=== PATIENT | male | born 1985 | race American Indian/Alaskan Native ===

== ENCOUNTER 2017-12-13 06:19 | Emergency (ER) | payer OTHER ==
--- NOTE | 2017-12-13 08:05 | Emergency Department Report ---
HPI - General Chief Complaint: Upper Respiratory Infection Time Seen by Provider: 12/13/17 07:07 - HPI HPI: Patient reports upper respiratory symptoms to include fever, chills, shortness of breath, cough for 3 days. He's been exposed to influenza virus from his family member. He said his brother also was just trace in the hospital for bilateral pneumonia. Generalized achy and 10 out of 10, he reports some sore throat. Reports headache. Denies any back pain or abdominal pain. Denies any urinary burning frequency or urgency. Denies any nausea or vomiting. He is able to tolerate oral liquids and was noted to be drinking in Gatorade. Over- the-counter medication without any relief. ED Past Medical Hx - Past Medical History Previous Medical History?: No - Surgical History Past Surgical History?: No - Social History Smoking Status: Never Smoker Substance Use Type: None - Medications Home Medications: Home Medications Medication Instructions Recorded Confirmed Last Taken Type Cetirizine HCl [ZyrTEC] 10 mg PO QDAY 10 Days #10 capsule 12/13/17 Unknown Rx Ibuprofen [Motrin] 600 mg PO Q6H PRN #12 tablet 12/13/17 Unknown Rx Oseltamivir [Tamiflu] 75 mg PO BID 5 Days #10 cap 12/13/17 Unknown Rx guaiFENesin/CODEINE [Robitussin AC] 5 ml PO Q12H PRN #50 oral.liqd 12/13/17 Unknown Rx ED Review of Systems ROS: Stated complaint: SWEATS, COLD SX Other details as noted in HPI Comment: All other systems reviewed and negative Constitutional: chills, fever, weakness Eyes: eye discharge ENT: throat pain, congestion. denies: ear pain, dental pain, hearing loss Respiratory: cough, shortness of breath, SOB with exertion. denies: orthopnea, SOB at rest, stridor, wheezing Cardiovascular: denies: chest pain, palpitations, dyspnea on exertion, orthopnea , edema, syncope, paroxysmal nocturnal dyspnea Gastrointestinal: denies: abdominal pain, nausea, vomiting, diarrhea, constipation, hematemesis, melena, hematochezia Genitourinary: denies: urgency, dysuria, frequency, hematuria, discharge Musculoskeletal: myalgia. denies: back pain, joint swelling, arthralgia Skin: denies: rash Neurological: headache, weakness. denies: numbness, paresthesias, confusion, abnormal gait Physical Exam - Physical Exam Vital Signs: Vital Signs 12/13/17 06:40 Temperature 100.1 F H Pulse Rate 101 H Blood Pressure 126/61 O2 Sat by Pulse 99 Oximetry Vital Signs 12/13/17 12/13/17 12/13/17 06:40 08:20 08:52 Temperature 100.1 F H 99.4 F Pulse Rate 101 H 97 H Pulse Rate [ 89 Anterior Bilateral Throughout] Respiratory 16 Rate Respiratory 18 Rate [Anterior Bilateral Throughout] Blood Pressure 126/61 Blood Pressure 125/74 [Left] O2 Sat by Pulse 99 97 Oximetry 12/13/17 09:05 Temperature Pulse Rate Pulse Rate [ 85 Anterior Bilateral Throughout] Respiratory Rate Respiratory 20 Rate [Anterior Bilateral Throughout] Blood Pressure Blood Pressure [Left] O2 Sat by Pulse Oximetry General: This is a 31-year-old male that looks sick but nontoxic in appearance. ED Course Vital Signs 12/13/17 06:40 Temperature 100.1 F H Pulse Rate 101 H Blood Pressure 126/61 O2 Sat by Pulse 99 Oximetry Vital Signs 12/13/17 12/13/17 12/13/17 06:40 08:20 08:52 Temperature 100.1 F H 99.4 F Pulse Rate 101 H 97 H Pulse Rate [ 89 Anterior Bilateral Throughout] Respiratory 16 Rate Respiratory 18 Rate [Anterior Bilateral Throughout] Blood Pressure 126/61 Blood Pressure 125/74 [Left] O2 Sat by Pulse 99 97 Oximetry 12/13/17 09:05 Temperature Pulse Rate Pulse Rate [ 85 Anterior Bilateral Throughout] Respiratory Rate Respiratory 20 Rate [Anterior Bilateral Throughout] Blood Pressure Blood Pressure [Left] O2 Sat by Pulse Oximetry - Reevaluation(s) Reevaluation #1: 12/13/17 09:58 Patient given Motrin 800 mg by mouth, DuoNeb 1 treatment for scant upper lung field wheezing with shortness of breath. Evaluated after treatment and he said he felt much better. He was orally hydrated in the emergency room and tolerated 3 cups of water without any nausea or vomiting. ED Medical Decision Making - Lab Data Negative influenza A and B - Radiology Data Radiology results: report reviewed Chest x-ray reveals no acute cardiopulmonary processes Critical care attestation.: If time is entered above; I have spent that time in minutes in the direct care of this critically ill patient, excluding procedure time. ED Disposition Clinical Impression: Exposure to the flu, Acute viral syndrome, Upper respiratory infection with cough and congestion, Fever in adult Disposition: DC-01 TO HOME OR SELFCARE Is pt being admited?: No Does the pt Need Aspirin: No Condition: Stable Instructions: Viral Syndrome (ED), Upper Respiratory Infection (ED), Fever in Adults (ED), Acute Cough (ED) Additional Instructions: Please increase her fluid intake to 2-3 L of liquids including orange juice, water, cranberry juice and Gatorade. rest for 2 days Take medication as prescribed Follow up with your primary care physician in 4 days and if he do not have when he can follow-up at [facility]. if your condition worsens .please return to the emergency room Please do not drive or operate heavy machinery while taking and cough medicine that this medication causes drowsiness Prescriptions: Cetirizine HCl [ZyrTEC] 10 mg PO QDAY 10 Days #10 capsule guaiFENesin/CODEINE [Robitussin AC] 5 ml PO Q12H PRN #50 oral.liqd PRN Reason: Cough Ibuprofen [Motrin] 600 mg PO Q6H PRN #12 tablet PRN Reason: Pain Oseltamivir [Tamiflu] 75 mg PO BID 5 Days #10 cap Referrals: [facility] [Outside] - 12/17/17 Forms: Accompanied Note, Work/School Release Form(ED)
[2017-12-13] MEDS ORDERED: MOTRIN PO ONE (08:09)
[2017-12-13] MEDS ORDERED: DUONEB *Not for PRN Use IH ONE (08:09)
[2017-12-13 08:22] VITALS: BP 125/74
--- NOTE | 2017-12-13 08:41 | XRay Report ---
ROUTINE CHEST, TWO VIEWS: Cough, fever PA and lateral views demonstrate the heart and mediastinal contour to be of normal size and shape. The lungs are clear and fully expanded and the soft tissues and bony structures are normal. IMPRESSION: Normal study.
== END 2017-12-13 10:14 | disposition home or self-care (01) ==
LOC: ED 06:19
DX: J06.9 Acute upper respiratory infection, unspecified (principal); B34.9 Viral infection, unspecified; Z20.828 Contact with and (suspected) exposure to other viral communicable diseases
CPT/HCPCS: 71046; 87400; 94640

== ENCOUNTER 2021-04-28 09:09 | Observation (INO) | payer SELFPAY ==
[2021-04-28] MEDS ORDERED: MORPHINE 4 MG/1 ML INJ IV ONE (10:19)
[2021-04-28] MEDS ORDERED: SODIUM CHLORIDE 0.9% 1000 ML 1,000 ML IV ONE (10:19)
[2021-04-28] MEDS ORDERED: ONDANSETRON 4 MG/2 ML INJ IV ONE (10:19)
--- NOTE | 2021-04-28 10:20 | Emergency Department Report ---
ED Abdominal Pain HPI - General Chief Complaint: Abdominal Pain Stated Complaint: BOWEL DISCOMFORT Time Seen by Provider: 04/28/21 10:14 Source: patient Mode of arrival: Ambulatory Limitations: No Limitations - History of Present Illness Initial Comments: 35 year old male who reports no significant past medical history presents to the ER today with complaints of abdominal pain. Patient states that symptoms started yesterday. He reports diffuse abdominal pain which has been constant in nature. He reports multiple episodes of nausea and vomiting and he states that his emesis is mainly bilious. He states that he has also been constipated with his last bowel movement being 5 days ago. He states that he has not tried any zoce-amw-pvonval medications to help with his bowel movements. He denies any history of abdominal surgeries. He denies any ill contacts, recent bad food intake, recent antibiotic use or recent travel out of the country. He states that he drinks occasionally. He denies any tobacco abuse or illicit drug use. MD Complaint: abdominal pain -: days(s) (1) Location: diffuse Severity scale (0 -10): 10 - Related Data Previous Rx's Medication Instructions Recorded Last Taken Type Cetirizine HCl [ZyrTEC] 10 mg PO QDAY 10 Days #10 capsule 12/13/17 Unknown Rx Ibuprofen [Motrin] 600 mg PO Q6H PRN #12 tablet 12/13/17 Unknown Rx Oseltamivir [Tamiflu] 75 mg PO BID 5 Days #10 cap 12/13/17 Unknown Rx guaiFENesin/CODEINE [Robitussin AC] 5 ml PO Q12H PRN #50 oral.liqd 12/13/17 Unknown Rx Allergies Allergy/AdvReac Type Severity Reaction Status Date / Time No Known Allergies Allergy Unverified 12/13/17 08:08 ED Review of Systems ROS: Stated complaint: BOWEL DISCOMFORT Other details as noted in HPI Comment: All other systems reviewed and negative Constitutional: denies: chills, fever Eyes: denies: eye pain, eye discharge, vision change ENT: denies: ear pain, throat pain, dental pain, hearing loss, epistaxis, congestion Respiratory: denies: cough, shortness of breath, SOB with exertion, SOB at rest, wheezing Cardiovascular: denies: chest pain, palpitations, dyspnea on exertion, edema, syncope, paroxysmal nocturnal dyspnea Gastrointestinal: abdominal pain, nausea, vomiting, constipation Genitourinary: denies: urgency, dysuria, frequency, hematuria, discharge, testicular pain, testicular mass Musculoskeletal: denies: back pain, joint swelling, arthralgia Skin: denies: rash, lesions, change in color, change in hair/nails, pruritus Neurological: denies: headache, weakness, numbness, paresthesias, confusion, abnormal gait, vertigo Psychiatric: denies: anxiety, depression, auditory hallucinations, visual hallucinations, homicidal thoughts Hematological/Lymphatic: denies: easy bleeding, easy bruising, swollen glands ED Past Medical Hx - Past Medical History Previous Medical History?: No - Surgical History Past Surgical History?: No - Social History Smoking Status: Never Smoker Substance Use Type: None - Medications Home Medications: Home Medications Medication Instructions Recorded Confirmed Last Taken Type Cetirizine HCl [ZyrTEC] 10 mg PO QDAY 10 Days #10 capsule 12/13/17 Unknown Rx Ibuprofen [Motrin] 600 mg PO Q6H PRN #12 tablet 12/13/17 Unknown Rx Oseltamivir [Tamiflu] 75 mg PO BID 5 Days #10 cap 12/13/17 Unknown Rx guaiFENesin/CODEINE [Robitussin AC] 5 ml PO Q12H PRN #50 oral.liqd 12/13/17 Unknown Rx ED Physical Exam - General Limitations: No Limitations General appearance: alert, in distress, other (Pt actively vomiting in trash can when I walked in room ) - Head Head exam: Present: atraumatic, normocephalic, normal inspection - Eye Eye exam: Present: normal appearance, PERRL, EOMI Pupils: Present: normal accommodation - Neck Neck exam: Present: normal inspection, full ROM. Absent: meningismus - Respiratory Respiratory exam: Present: normal lung sounds bilaterally. Absent: respiratory distress, wheezes, rales, rhonchi - Cardiovascular Cardiovascular Exam: Present: regular rate, normal rhythm, normal heart sounds - GI/Abdominal GI/Abdominal exam: Present: soft, distended (Mild), tenderness (Diffuse). Absent: rebound, rigid - Neurological Exam Neurological exam: Present: alert, oriented X3, CN II-XII intact, normal gait - Psychiatric Psychiatric exam: Present: normal affect, normal mood - Skin Skin exam: Present: intact ED Course Vital Signs 04/28/21 04/28/21 04/28/21 09:12 11:00 11:58 Temperature 98.4 F Pulse Rate 72 Respiratory 18 16 13 Rate Blood Pressure Blood Pressure 142/87 [Right] O2 Sat by Pulse 100 Oximetry 04/28/21 04/28/21 04/28/21 12:06 13:31 13:37 Temperature 99.2 F Pulse Rate 73 80 Respiratory 13 16 17 Rate Blood Pressure 133/69 Blood Pressure 145/71 [Right] O2 Sat by Pulse 98 96 Oximetry ED Medical Decision Making - Lab Data Result diagrams: 04/28/21 10:34 04/28/21 10:34 - Radiology Data Radiology results: report reviewed Patient: JUSTIN CHILDERS MR#: [id number] : 1985 Acct:[id number] Age/Sex: 35 / M ADM Date: 04/28/21 Loc: ED Attending Dr: Ordering Physician: OLAMIDE PETERSEN Date of Service: 04/28/21 Procedure(s): CT abdomen pelvis w con Accession Number(s): [id number] cc: OLAMIDE PETERSEN CT abdomen pelvis w con INDICATION / CLINICAL INFORMATION: Vomit/abdominal/constipation 100ML OMNI 300. TECHNIQUE: Axial CT images were obtained through the abdomen and pelvis after IV contrast. All CT scans at this location are performed using CT dose reduction for ALARA by means of automated exposure control. COMPARISON: None available. FINDINGS: LOWER CHEST: No significant abnormality LIVER: No significant abnormality GALLBLADDER/BILIARY TREE: No significant abnormality PANCREAS: No significant abnormality SPLEEN: No significant abnormality ADRENALS: Low-density nodule within the left adrenal gland measures 2.6 cm. This is indeterminate. Right adrenal gland is unremarkable. KIDNEYS / URETER: No significant abnormality URINARY BLADDER: No significant abnormality REPRODUCTIVE ORGANS: No significant abnormality STOMACH / BOWEL: Stomach is unremarkable. Small bowel and colon demonstrate no evidence of mechanical obstruction or inflammation. 1.5 cm appendicolith is present at the base of the appendix. The appendix is dilated proximally, measuring 2.4 cm. There is wall thickening and mild perivesical fat stranding. The distal appendix is normal in caliber. No significant free fluid or organized collection. No free air. LYMPH NODES: Left inguinal lymphadenopathy, measuring up to 1.5 cm in short axis. No other adenopathy is seen. VASCULATURE: No significant abnormality. OTHER: No free air, free fluid, or focal fluid collection is identified. SKELETAL SYSTEM: No acute osseous findings. IMPRESSION: 1. Findings consistent with acute appendicitis with 1.5 cm appendicolith at the base of the appendix. No perforation or abscess. 2. Nonspecific left inguinal lymphadenopathy, may be reactive. Continued follow-up is recommended. 3. Left adrenal nodule may reflect an adrenal adenoma, though is indeterminate. Recommend further evaluation with nonemergent CT with adrenal mass protocol. Signer Name: Luis Monique MD Signed: 04/28/2021 1:03 PM Workstation Name: [email or web address] Transcribed By: JERRY Dictated By: LUIS MONIQUE MD Electronically Authenticated By: LUIS MONIQUE MD Signed Date/Time: 04/28/21 1303 DD/ 1258 - Medical Decision Making All labs reviewed -CBC shows very mild leukocytosis with a white count of 11.5, otherwise unremarkable. CMP unremarkable. Lipase normal. CT scan of abdomen pelvis with IV contrast shows -- 1. Findings consistent with acute appendicitis with 1.5 cm appendicolith at the base of the appendix. No perforation or abscess. 2. Nonspecific left inguinal ly mphadenopathy, may be reactive. Continued follow-up is recommended. 3. Left adrenal nodule may reflect an adrenal adenoma, though is indeterminate. Recommend further evaluation with nonemergent CT with adrenal mass protocol. Patient currently resting comfortably. He still has tenderness to his right lower quadrant with guarding. Repeat vital signs stable. Discussed lab and CT results with patient. He is aware that he will have to have surgery to remove his appendix. 1326: Consult placed for surgery 1405: Discussed case as well as imaging results with Dr. Almonte, recommend starting patient on Zosyn, and admitted to the hospitalist service and she will consult and come see patient in the ER. 1410: Discussed case and imaging results and recommendation per consultation with Dr Almonte with Dr Garrido (hospitalist). He has agreed to admit pt. Critical care attestation.: If time is entered above; I have spent that time in minutes in the direct care of this critically ill patient, excluding procedure time. ED Disposition Clinical Impression: Acute appendicitis Disposition: OP ADMIT IP TO THIS HOSP Is pt being admited?: Yes Does the pt Need Aspirin: No Condition: Stable Referrals: PRIMARY CARE, [Primary Care Provider] - 3-5 Days
[2021-04-28 11:11] LABS: Basophils # (Auto) 0.1 K/mm3 (0.0-0.1); Basophils % (Auto) 0.5 % (0.0-1.8); Hematocrit 45.4 % (35.5-45.6); Hemoglobin 15.2 gm/dl (11.8-15.2); Lymphocytes # (Auto) 0.9 K/mm3 (1.2-5.4); Lymphocytes % (Auto) 7.3 % (13.4-35.0); Mean Corpuscular HGB Conc 34 % (32-34); Mean Corpuscular Volume 81 fl (84-94); Monocytes # (Auto) 0.4 K/mm3 (0.0-0.8); Monocytes % (Auto) 3.2 % (0.0-7.3); Platelet Count 212 K/mm3 (140-440); Red Blood Count 5.61 M/mm3 (3.65-5.03); Red Cell Distribution Width 13.4 % (13.2-15.2)
[2021-04-28 11:34] LABS: Alanine Aminotransferase 38 units/L (7-56); Albumin 4.7 g/dL (3.9-5); BUN/Creatinine Ratio 14; Blood Urea Nitrogen 11 mg/dL (9-20); Calcium 11.6 mg/dL (8.4-10.2); Hemolysis Index 50
[2021-04-28 11:36] LABS: Bilirubin,Direct < 0.2 mg/dL (0-0.2)
[2021-04-28] MEDS ORDERED: KETOROLAC 30 MG/1 ML INJ IV ONE (11:46)
[2021-04-28] MEDS ORDERED: HYDROmorphone 1 MG/1 ML INJ IV ONE (11:46)
--- NOTE | 2021-04-28 13:08 | Cat Scan Report ---
CT abdomen pelvis w con INDICATION / CLINICAL INFORMATION: Vomit/abdominal/constipation 100ML OMNI 300. TECHNIQUE: Axial CT images were obtained through the abdomen and pelvis after IV contrast. All CT sc ans at this location are performed using CT dose reduction for ALARA by means of automated exposure c ontrol. COMPARISON: None available. FINDINGS: LOWER CHEST: No significant abnormality LIVER: No significant abnormality GALLBLADDER/BILIARY TREE: No significant abnormality PANCREAS: No significant abnormality SPLEEN: No significant abnormality ADRENALS: Low-density nodule within the left adrenal gland measures 2.6 cm. This is indeterminate. Ri ght adrenal gland is unremarkable. KIDNEYS / URETER: No significant abnormality URINARY BLADDER: No significant abnormality REPRODUCTIVE ORGANS: No significant abnormality STOMACH / BOWEL: Stomach is unremarkable. Small bowel and colon demonstrate no evidence of mechanical obstruction or inflammation. 1.5 cm appendicolith is present at the base of the appendix. The append ix is dilated proximally, measuring 2.4 cm. There is wall thickening and mild perivesical fat strandi ng. The distal appendix is normal in caliber. No significant free fluid or organized collection. No f ree air. LYMPH NODES: Left inguinal lymphadenopathy, measuring up to 1.5 cm in short axis. No other adenopathy is seen. VASCULATURE: No significant abnormality. OTHER: No free air, free fluid, or focal fluid collection is identified. SKELETAL SYSTEM: No acute osseous findings. IMPRESSION: 1. Findings consistent with acute appendicitis with 1.5 cm appendicolith at the base of the appendix. No perforation or abscess. 2. Nonspecific left inguinal lymphadenopathy, may be reactive. Continued follow-up is recommended. 3. Left adrenal nodule may reflect an adrenal adenoma, though is indeterminate. Recommend further magui luation with nonemergent CT with adrenal mass protocol. Signer Name: Saroj Monique MD Signed: 04/28/2021 1:03 PM Workstation Name: [email or web address]
[2021-04-28] MEDS ORDERED: PIPERACILLIN/TAZOBACTAM 3.375 3.375 GM/50 ML BAG IV ONE (14:15)
[2021-04-28] MEDS ORDERED: BUPIVACAINE/PF (0.5%) 5 MG/1 ML 30 ML VIAL INFILTRATI ONE ×2 (14:38→16:35)
[2021-04-28] MEDS ORDERED: LIDOCAINE (1%) 10 MG/1 ML VIAL 20 ML MDV ONE (14:38)
--- NOTE | 2021-04-28 14:45 | Anesthesia Consultation ---
<FREEMAN SAMUELS - Last Filed: 04/28/21 14:43> Anesthesia Consult and Med Hx Date of service: 04/28/21 - Airway Anesthetic Teeth Evaluation: Good ROM Head & Neck: Adequate Mental/Hyoid Distance: Adequate Mallampati Class: Class II Intubation Access Assessment: Probably Good - Pulmonary Exam CTA: Yes - Cardiac Exam Cardiac Exam: RRR - Pre-Operative Health Status ASA Pre-Surgery Classification: ASA1 Proposed Anesthetic Plan: General - Pulmonary Hx Smoking: No <BOONE PLAZA - Last Filed: 04/28/21 16:12> Anesthesia Consult and Med Hx - Pre-Operative Health Status ASA Pre-Surgery Classification: ASA1 Proposed Anesthetic Plan: General - Pulmonary Hx Smoking: No - Cardiovascular System Hx Hypertension: No - Central Nervous System CVA: No - Endocrine Hx Renal Disease: No Hx Liver Disease: No Hx Insulin Dependent Diabetes: No Hx Non-Insulin Dependent Diabetes: No Hx Thyroid Disease: No - Other Systems Hx Obesity: Yes (BMI 31) - Additional Comments Anesthesia Medical History Comments: Acute appendicitis scheduled for lap appendectomy. Plan GETA w/ stnd ASA monitors.
--- NOTE | 2021-04-28 14:46 | Anesthesia Day of Surgery ---
Anesthesia Day of Surgery - Day of Surgery Patient Examined: Yes Patient H&P Reviewed: Yes Patient is NPO: Yes Beta Blockers: No Cardiac Clearance: No Pulmonary Clearance: No (n/a) Osiel's Test: N/A
--- NOTE | 2021-04-28 14:55 | History and Physical Report ---
History of Present Illness Chief complaint: I have abdominal Pain History of present illness: 35 YO Male with Obesity presents to ED for evaluation. Pt reports "my stomach hurts". Patient states that he has experienced abdominal pain over the past 5 days with worsening symptoms over the same timeframe. Patient states that pain is 7/10, constant, crampy in nature, localized to the right lower quadrant without exacerbating or alleviating factors. Patient acknowledges nausea. Patient transported to [facility] via private vehicle for further care and evaluation of the aforementioned symptoms. Patient seen and evaluated in the emergency department. All lab and imaging studies reviewed. Patient with CT scan of the abdomen pelvis was found to have acute appendicitis complicated by systemic inflammatory response syndrome. Surgery team consulted in ED. Patient pending surgical intervention. Patient denies fever, chills, chest pain, palpitation productive cough, skin rash, recent ill contacts, ingestion of food/water from new or different sources, or known exposure to COVID-19. No prior admission for review. No medication listed at time of admission for reconciliation. Past History Past Medical History: No medical history Past Surgical History: Other (Forehead laceration repair) Social history: single. denies: smoking, alcohol abuse, prescription drug abuse Family history: no significant family history, other (Reviewed) Medications and Allergies Allergies Allergy/AdvReac Type Severity Reaction Status Date / Time No Known Allergies Allergy Unverified 12/13/17 08:08 Home Medications Medication Instructions Recorded Confirmed Last Taken Type Cetirizine HCl [ZyrTEC] 10 mg PO QDAY 10 Days #10 capsule 12/13/17 Unknown Rx Ibuprofen [Motrin] 600 mg PO Q6H PRN #12 tablet 12/13/17 Unknown Rx Oseltamivir [Tamiflu] 75 mg PO BID 5 Days #10 cap 12/13/17 Unknown Rx guaiFENesin/CODEINE [Robitussin AC] 5 ml PO Q12H PRN #50 oral.liqd 12/13/17 Unknown Rx Active Meds: Active Medications Hydromorphone HCl (Hydromorphone 1 Mg/1 Ml Inj) 1 mg IV ONCE DEMETRIUS Stop: 04/28/21 17:00 Review of Systems Constitutional: no weight loss, no weight gain, no fever, no chills Ears, nose, mouth and throat: no ear pain, no tinnitis, no decreased hearing, no nasal congestion, no nasal discharge Cardiovascular: no chest pain, no palpitations, no rapid/irregular heart beat, no shortness of breath Respiratory: no cough, no cough with sputum, no hemoptysis, no shortness of breath Gastrointestinal: abdominal pain, nausea, no vomiting, no diarrhea, no constipation, no change in bowel habits Genitourinary Male: no hematuria, no flank pain, no discharge, no urinary frequency, no urinary hesitancy Rectal: no pain, no incontinence, no bleeding Musculoskeletal: no neck stiffness, no neck pain, no shooting arm pain, no low back pain, no shooting leg pain, no leg numbness/tingling Integumentary: no rash, no pruritis, no sores, no wounds, no jaundice Neurological: no transient paralysis, no paralysis, no weakness, no numbness, no tingling, no seizures Psychiatric: no anxiety, no memory loss, no change in sleep habits, no insomnia, no hypersomnia, no change in appetite, no change in libido Endocrine: no cold intolerance, no heat intolerance, no polyphagia, no excessive thirst, no polydipsia, no polyuria, no excessive sweating Hematologic/Lymphatic: no easy bruising, no easy bleeding, no lymphadenopathy, no lymphedema Allergic/Immunologic: no urticaria, no allergic rhinitis, no persistent infections, no anaphylaxis Exam - Constitutional Vitals: Temp Pulse Resp BP Pulse Ox 99.2 F 80 17 145/71 96 04/28/21 13:31 04/28/21 13:31 04/28/21 13:37 04/28/21 13:31 04/28/21 13:31 General appearance: Present: mild distress - EENT Eyes: Present: PERRL ENT: hearing intact, clear oral mucosa - Neck Neck: Present: supple, normal ROM - Respiratory Respiratory effort: normal Respiratory: bilateral: CTA - Cardiovascular Heart Sounds: Present: S1 & S2. Absent: rub, click - Extremities Extremities: pulses symmetrical, No edema Peripheral Pulses: within normal limits - Abdominal General gastrointestinal: Present: soft, tender, non-distended, normal bowel sounds Male genitourinary: Present: normal - Integumentary Integumentary: Present: clear, warm, dry - Musculoskeletal Musculoskeletal: gait normal, strength equal bilaterally - Psychiatric Psychiatric: appropriate mood/affect, intact judgment & insight - Neurologic Neurologic: CNII-XII intact, moves all extremities Results - Labs CBC & Chem 7: 04/28/21 10:34 04/28/21 10:34 Labs: Abnormal lab results 04/28/21 04/28/21 Range/Units 10:34 10:34 WBC 11.9 H (4.5-11.0) K/mm3 RBC 5.61 H (3.65-5.03) M/mm3 MCV 81 L (84-94) fl MCH 27 L (28-32) pg Lymph % (Auto) 7.3 L (13.4-35.0) % Lymph # (Auto) 0.9 L (1.2-5.4) K/mm3 Seg Neutrophils % 89.0 H (40.0-70.0) % Seg Neutrophils # 10.6 H (1.8-7.7) K/mm3 Glucose 105 H (75-100) mg/dL Calcium 11.6 H (8.4-10.2) mg/dL Total Protein 8.9 H (6.3-8.2) g/dL Assessment and Plan - Patient Problems (1) Acute appendicitis Current Visit: Yes Status: Acute Qualifiers: Appendicitis perforation presence: without perforation Plan to address problem: N.p.o., IV fluid resuscitation therapy, IV antibiotic therapy, surgery team consulted. CT scan abdomen and pelvis. Serial abdominal exam. Patient is pending surgical intervention at this time. (2) SIRS (systemic inflammatory response syndrome) Current Visit: Yes Status: Acute Plan to address problem: CBC, CMP, IV antibiotic therapy x1 dose, IV fluid resuscitation therapy, supportive care, repeat CBC in a.m. (3) Obesity (BMI 30.0-34.9) Current Visit: Yes Status: Acute Plan to address problem: Balanced diet, increase physical activity at discharge, (4) DVT prophylaxis Current Visit: Yes Status: Acute Plan to address problem: SCD to bilateral lower extremities while in bed, patient is ambulatory
[2021-04-28] MEDS ORDERED: HYDROmorphone 1 MG/1 ML INJ IV SCH (15:00)
[2021-04-28] MEDS ORDERED: ACETAMINOPHEN 325 MG TAB PO PRN (15:00)
--- NOTE | 2021-04-28 15:18 | Consultation ---
History of Present Illness Consult date: 04/28/21 Reason for consult: abdominal pain Chief complaint: Abdominal pain - History of present illness History of present illness: 35-year-old male with no past medical history who presents to the emergency room with complaints of acute onset right lower quadrant abdominal pain that started yesterday evening. The pain was moderate but then became very severe around 3 in the morning and therefore he decided to come to the hospital. The pain is crampy in nature and started in the right lower quadrant but radiates to the rest of the abdomen. No exacerbating factors. Only pain medication provided in the ER helped with the pain. No fevers or chills. He does admit to nausea and retching but no emesis. He has never had pain like this in the past. He also complains of constipation. Past History Past Medical History: No medical history Past Surgical History: Other (Stitches of right forehead) Social history: denies: smoking, alcohol abuse, prescription drug abuse Family history: other (CHF -mother) Medications and Allergies Allergies Allergy/AdvReac Type Severity Reaction Status Date / Time No Known Allergies Allergy Unverified 12/13/17 08:08 Home Medications Medication Instructions Recorded Confirmed Last Taken Type Cetirizine HCl [ZyrTEC] 10 mg PO QDAY 10 Days #10 capsule 12/13/17 Unknown Rx Ibuprofen [Motrin] 600 mg PO Q6H PRN #12 tablet 12/13/17 Unknown Rx Oseltamivir [Tamiflu] 75 mg PO BID 5 Days #10 cap 12/13/17 Unknown Rx guaiFENesin/CODEINE [Robitussin AC] 5 ml PO Q12H PRN #50 oral.liqd 12/13/17 Unknown Rx Active Meds: Active Medications Acetaminophen (Acetaminophen 325 Mg Tab) 650 mg PO Q4H PRN PRN Reason: Pain MILD(1-3)/Fever >100.5/BOYER Albuterol (Albuterol 2.5 Mg/3 Ml Nebu) 2.5 mg IH Q4HRT PRN PRN Reason: Shortness Of Breath Hydromorphone HCl (Hydromorphone 1 Mg/1 Ml Inj) 1 mg IV ONCE DEMETRIUS Stop: 04/28/21 17:00 Sodium Chloride (Nacl 0.9% 1000 Ml) 1,000 mls @ 125 mls/hr IV DIRECT DEMETRIUS Morphine Sulfate (Morphine 2 Mg/1 Ml Inj) 2 mg IV Q6H PRN PRN Reason: Pain, Moderate (4-6) Ondansetron HCl (Ondansetron 4 Mg/2 Ml Inj) 4 mg IV Q8H PRN PRN Reason: Nausea And Vomiting Oxycodone/Acetaminophen (Oxycodone /Acetaminophen 5-325mg Tab) 1 tab PO Q6H PRN PRN Reason: Pain, Moderate (4-6) Sodium Chloride (Sodium Chloride 0.9% 10 Ml Flush Syringe) 10 ml IV BID DEMETRIUS Sodium Chloride (Sodium Chloride 0.9% 10 Ml Flush Syringe) 10 ml IV PRN PRN PRN Reason: LINE FLUSH Review of Systems All systems: negative (10 point ROS performed and negative except for that listed in HPI) Exam Vital Signs Temp Pulse Resp BP Pulse Ox 98.4 F 72 18 142/87 100 04/28/21 09:12 04/28/21 09:12 04/28/21 09:12 04/28/21 09:12 04/28/21 09:12 Narrative exam: Gen.: Awake, alert, oriented x3. No apparent distress ENT: Trachea midline. No lymphadenopathy. No scleral icterus or conjunctival pallor CV: S1, S2 present Respiratory: No audible wheezes Abdomen: Soft, nondistended, localized tenderness to palpation in the right lower quadrant with voluntary guarding. No rebound, rigidity Extremities: No clubbing, cyanosis, edema Results - Labs 04/28/21 10:34 04/28/21 10:34 Abnormal lab results 04/28/21 04/28/21 Range/Units 10:34 10:34 WBC 11.9 H (4.5-11.0) K/mm3 RBC 5.61 H (3.65-5.03) M/mm3 MCV 81 L (84-94) fl MCH 27 L (28-32) pg Lymph % (Auto) 7.3 L (13.4-35.0) % Lymph # (Auto) 0.9 L (1.2-5.4) K/mm3 Seg Neutrophils % 89.0 H (40.0-70.0) % Seg Neutrophils # 10.6 H (1.8-7.7) K/mm3 Glucose 105 H (75-100) mg/dL Calcium 11.6 H (8.4-10.2) mg/dL Total Protein 8.9 H (6.3-8.2) g/dL Diabetes panel 04/28/21 Range/Units 10:34 Sodium 138 (137-145) mmol/L Potassium 4.0 (3.6-5.0) mmol/L Chloride 99.2 (98-107) mmol/L Carbon Dioxide 26 (22-30) mmol/L BUN 11 (9-20) mg/dL Creatinine 0.8 (0.8-1.3) mg/dL Glucose 105 H (75-100) mg/dL Calcium 11.6 H (8.4-10.2) mg/dL AST 27 (5-40) units/L ALT 38 (7-56) units/L Alkaline Phosphatase 89 (35-129) units/L Total Protein 8.9 H (6.3-8.2) g/dL Albumin 4.7 (3.9-5) g/dL Calcium panel 04/28/21 Range/Units 10:34 Calcium 11.6 H (8.4-10.2) mg/dL Albumin 4.7 (3.9-5) g/dL Pituitary panel 04/28/21 Range/Units 10:34 Sodium 138 (137-145) mmol/L Potassium 4.0 (3.6-5.0) mmol/L Chloride 99.2 (98-107) mmol/L Carbon Dioxide 26 (22-30) mmol/L BUN 11 (9-20) mg/dL Creatinine 0.8 (0.8-1.3) mg/dL Glucose 105 H (75-100) mg/dL Calcium 11.6 H (8.4-10.2) mg/dL Adrenal panel 04/28/21 Range/Units 10:34 Sodium 138 (137-145) mmol/L Potassium 4.0 (3.6-5.0) mmol/L Chloride 99.2 (98-107) mmol/L Carbon Dioxide 26 (22-30) mmol/L BUN 11 (9-20) mg/dL Creatinine 0.8 (0.8-1.3) mg/dL Glucose 105 H (75-100) mg/dL Calcium 11.6 H (8.4-10.2) mg/dL Total Bilirubin 0.40 (0.1-1.2) mg/dL AST 27 (5-40) units/L ALT 38 (7-56) units/L Alkaline Phosphatase 89 (35-129) units/L Total Protein 8.9 H (6.3-8.2) g/dL Albumin 4.7 (3.9-5) g/dL - Imaging CT scan - abdomen: report reviewed, image reviewed CT scan - pelvis: report reviewed, image reviewed Assessment and Plan 35-year-old male with acute appendicitis, appendicolith Plan: 1. NPO 2. IVF 3. IV abx - zosyn given in ER 4. prn pain and nausea control 5. DVT ppx 6. Recommend appendectomy. I discussed all risks, benefits, alternatives to surgery with the patient and questions answered. Consent obtained for laparoscopic appendectomy, possible open, possible colon resection. We will proceed to operating room today. The patient has updated his aunt and daughter about the surgery. 7. Patient to be admitted to hospitalist service Thank you for this consultation. Please call with any questions or concerns. Evaluation and treatment of this patient was during the time of the national and state emergency arising from COVID19 coronavirus pandemic. Treatment and procedures performed meet the current and available best practice and guidelines for patient during the COVID pandemic.
[2021-04-28] MEDS ORDERED: LIDOCAINE MPF (2%) 20 MG/1 ML VIAL 5 ML ONE (15:24)
[2021-04-28] MEDS ORDERED: ROCURONIUM 50 MG/5 ML INJ IV ONE (15:24)
[2021-04-28] MEDS ORDERED: SUCCINYLCHOLINE CHLORIDE 200 MG/10 ML INJ MDV ONE (15:24)
[2021-04-28] MEDS ORDERED: HYDROmorphone 1 MG/1 ML INJ ONE (15:24)
[2021-04-28] MEDS ORDERED: propofoL 200 MG/20 ML VIAL IV ONE (15:24)
[2021-04-28] MEDS ORDERED: MIDAZOLAM 2 MG/2 ML INJ ONE (15:48)
[2021-04-28] MEDS ORDERED: ONDANSETRON 4 MG/2 ML INJ IV PRN ×2 (16:00→16:13)
[2021-04-28] MEDS ORDERED: ALBUTEROL 2.5 MG/3 ML NEBU IH PRN (16:00)
[2021-04-28] MEDS ORDERED: oxyCODONE /ACETAMINOPHEN 5-325MG TAB PO PRN (16:00)
[2021-04-28] MEDS ORDERED: SODIUM CHLORIDE 0.9% 1000 ML 1,000 ML IV SCH (16:00)
[2021-04-28] MEDS ORDERED: HYDROmorphone 1 MG/1 ML INJ IV PRN (16:13)
[2021-04-28] MEDS ORDERED: LACTATED RINGERS 1,000 ML ONE ×2 (16:19→16:49)
[2021-04-28] MEDS ORDERED: LIDOCAINE (1%) 10 MG/1 ML VIAL 20 ML MDV INFILTRATI ONE (16:36)
[2021-04-28] MEDS ORDERED: WATER FOR IRRIG STERILE 1,500 ML BOTTLE IR ONE (16:37)
[2021-04-28] MEDS ORDERED: GLYCOPYRROLATE 0.4 MG/2 ML INJ ONE (16:47)
[2021-04-28] MEDS ORDERED: ONDANSETRON 4 MG/2 ML INJ ONE (16:47)
[2021-04-28] MEDS ORDERED: NEOSTIGMINE 10MG/10 ML INJ MDV ONE (16:47)
--- NOTE | 2021-04-28 16:59 | Operative Report ---
Operative Report Operative Report: Date of operation: 04/28/2021 Preoperative diagnosis: acute appendicitis Postoperative diagnosis: Acute appendicitis Procedure performed: Laparoscopic appendectomy Surgeon: Billy Almonte DO Field Placement Director surgeon: Feroz Schultz MD Anesthesia: GETA, local Findings: Distended appendix with proximal appendicolith. No evidence of perforation EBL:<10cc Specimen: appendix Disposition/Condition: stable to PACU HPI and indication: 35-year-old male presented to ER with RLQ pain x24 hours and nausea. He was found to have an elevated WBC and acute appendicitis with appendicolith on CT scan. The diagnosis was discussed with the patient along with recommendations for appendectomy. All risks, benefits, alternatives to surgery were discussed with patient questions answered. Consent obtained for laparoscopic, possible open appendectomy, possible colon resection. Procedure in detail: Patient was identified in the preop area and taken back to the OR and placed on the OR table in supine position. After anesthesia was induced a perez catheter was steriley placed by the circulating nurse. The abdomen was prepped and draped in usual sterile fashion and a time out was performed. Local anesthetic was infilitrated into all skin incision sites. A supraumbilical incision was made through which a veress needle was inserted. The positioning of the veress needle was confirmed using the saline drop test. The abdomen was then insufflated to 15mmHg without incident. The veress needle was withdrawn and a 5mm Optiview trocar was placed through this incision. The abdomen was inspected and no underlying injury to the abdominal structures was identified. A 5mm suprapubic trocar and a 12 mm LLQ trocar were placed under direct visualization. The patient was placed in Trendelenburg and tilted to the left. The omentum was retracted from the lower abdomen and the cecum was identified. The appendix was visualized and noted to be dilated with a proximal appendicolith. There was a small adhesion from the omentum to the appendix which was dissected using harmonic scalpel. The appendix was then grasped and retracted cephalad towards the abdominal wall. The mesentery of the appendix was ligated using the harmonic scalpel. The base of the appendix was transected using an ethicon flex stapler 45mm white load. The appendix was placed into an endocatch bag and removed via the 12 mm port. This was passed off the table as specimen. The staple line and mesentery were then inspected and no bleeding visualized. The staple line was intact. The 12 mm port was then removed and the fascia closed with an interrupted 0 Vicryl stitch using the Quincy Nix device. The remainder of the ports were then removed and the abdomen desufflated. Local anesthetic was once again infiltrated into the skin incision sites. All skin incisions were closed using 4-0 monocryl subcuticular stitches and skin glue. At the end of the case, all sponge, instrument, sharp counts were correct x2. The patient was awoken from anesthesia, perez catheter removed, and he was taken to PACU in stable condition.
[2021-04-28] MEDS ORDERED: HYDROcodone/ACETAMINOPHEN 5-325 MG TAB PO PRN (17:30)
--- NOTE | 2021-04-28 17:59 | Post Anesthesia Evaluation ---
- Post Anesthesia Evaluation Patient Participated: Yes Airway Patent: Yes Stable Respiratory Function: Yes Nausea/Vomiting: No Temp > 96.8F: Yes Pain Manageable: Yes Adequeate Hydration: Yes Anesthesia Complications: No
[2021-04-28] MEDS: MORPHINE 2 MG/1 ML INJ IV PRN (22:06)
[2021-04-29 04:41] LABS: Basophils % (Auto) 0.6 % (0.0-1.8); Eosinophils % (Auto) 0.1 % (0.0-4.3); Hematocrit 40.6 % (35.5-45.6); Hemoglobin 13.6 gm/dl (11.8-15.2); Lymphocytes # (Auto) 1.5 K/mm3 (1.2-5.4); Lymphocytes % (Auto) 18.5 % (13.4-35.0); Mean Corpuscular HGB Conc 33 % (32-34); Mean Corpuscular Volume 81 fl (84-94); Monocytes # (Auto) 0.7 K/mm3 (0.0-0.8); Monocytes % (Auto) 8.9 % (0.0-7.3); Platelet Count 167 K/mm3 (140-440); Red Blood Count 5.02 M/mm3 (3.65-5.03); Red Cell Distribution Width 13.7 % (13.2-15.2)
[2021-04-29] MEDS: MORPHINE 2 MG/1 ML INJ IV PRN (04:51)
[2021-04-29 05:03] LABS: Alanine Aminotransferase 23 units/L (7-56); Albumin 3.7 g/dL (3.9-5); BUN/Creatinine Ratio 11; Blood Urea Nitrogen 11 mg/dL (9-20); Calcium 8.5 mg/dL (8.4-10.2); Hemolysis Index 14
[2021-04-29 08:39] LABS: Bilirubin,Urine NEG (Negative); Blood,Urine NEG (Negative); Color,Urine Yellow (Yellow); Mucus,Urine FEW /HPF; Protein,Urine <15 mg/dL mg/dL (Negative); Urobilinogen,Urine < 2.0 mg/dL (<2.0)
[2021-04-29 10:51] VITALS: BP 121/66
--- NOTE | 2021-04-29 11:15 | Progress Note ---
Assessment and Plan 35-year-old male s/p lap appy, POD 1 Plan: 1. Reg diet 2. dc IVF 3. dc abx 4. prn PO pain and nausea control 5. DVT ppx 6. IS/pulm toilet 7. Ok to dc from surgery standpoint. May follow up in surgery clinic in 2 weeks. RX for norco printed and placed on patient chart. Verbal and written dc instruction provided Thank you for this consultation. Please call with any questions or concerns. Evaluation and treatment of this patient was during the time of the national and state emergency arising from COVID19 coronavirus pandemic. Treatment and procedures performed meet the current and available best practice and guidelines for patient during the COVID pandemic. Subjective Date of service: 04/29/21 Narrative: Patient seen and examined. Complains of mild pain near incision sites. Also complains of discomfort when urinating. No fevers or chills. Tolerated a regul ar diet. No nausea or vomiting. Objective Vital Signs - 12hr 04/28/21 04/29/21 04/29/21 23:43 05:08 07:30 Temperature 99.3 F 99.9 F H 98.6 F Pulse Rate 87 75 75 Respiratory 16 18 18 Rate Blood Pressure 124/60 Blood Pressure 137/77 124/70 [Right] O2 Sat by Pulse 93 95 97 Oximetry 04/29/21 10:34 Temperature 98.0 F Pulse Rate 85 Respiratory 18 Rate Blood Pressure 121/66 Blood Pressure [Right] O2 Sat by Pulse 96 Oximetry - General physical appearance Narrative Exam: Gen.: Awake, alert, oriented x3. No apparent distress ENT: Trachea midline. No lymphadenopathy. No scleral icterus or conjunctival pallor CV: S1, S2 present Respiratory: No audible wheezes Abdomen: Soft, nondistended, mild tenderness to palpation near incisions. Incisions are clean, dry, intact. No ecchymosis or hematoma. No rebound, rigidity, guarding Extremities: No clubbing, cyanosis, edema - Labs 04/29/21 04:25 04/29/21 04:25 Diabetes panel 04/28/21 04/29/21 Range/Units 10:34 04:25 Sodium 138 141 (137-145) mmol/L Potassium 4.0 3.8 (3.6-5.0) mmol/L Chloride 99.2 105.4 (98-107) mmol/L Carbon Dioxide 26 28 (22-30) mmol/L BUN 11 11 (9-20) mg/dL Creatinine 0.8 1.0 (0.8-1.3) mg/dL Glucose 105 H 92 (75-100) mg/dL Calcium 11.6 H 8.5 D (8.4-10.2) mg/dL AST 27 19 (5-40) units/L ALT 38 23 (7-56) units/L Alkaline Phosphatase 89 68 (35-129) units/L Total Protein 8.9 H 7.0 D (6.3-8.2) g/dL Albumin 4.7 3.7 L (3.9-5) g/dL Calcium panel 04/28/21 04/29/21 Range/Units 10:34 04:25 Calcium 11.6 H 8.5 D (8.4-10.2) mg/dL Albumin 4.7 3.7 L (3.9-5) g/dL Pituitary panel 04/28/21 04/29/21 Range/Units 10:34 04:25 Sodium 138 141 (137-145) mmol/L Potassium 4.0 3.8 (3.6-5.0) mmol/L Chloride 99.2 105.4 (98-107) mmol/L Carbon Dioxide 26 28 (22-30) mmol/L BUN 11 11 (9-20) mg/dL Creatinine 0.8 1.0 (0.8-1.3) mg/dL Glucose 105 H 92 (75-100) mg/dL Calcium 11.6 H 8.5 D (8.4-10.2) mg/dL Adrenal panel 04/28/21 04/29/21 Range/Units 10:34 04:25 Sodium 138 141 (137-145) mmol/L Potassium 4.0 3.8 (3.6-5.0) mmol/L Chloride 99.2 105.4 (98-107) mmol/L Carbon Dioxide 26 28 (22-30) mmol/L BUN 11 11 (9-20) mg/dL Creatinine 0.8 1.0 (0.8-1.3) mg/dL Glucose 105 H 92 (75-100) mg/dL Calcium 11.6 H 8.5 D (8.4-10.2) mg/dL Total Bilirubin 0.40 0.60 (0.1-1.2) mg/dL AST 27 19 (5-40) units/L ALT 38 23 (7-56) units/L Alkaline Phosphatase 89 68 (35-129) units/L Total Protein 8.9 H 7.0 D (6.3-8.2) g/dL Albumin 4.7 3.7 L (3.9-5) g/dL
--- NOTE | 2021-04-29 11:17 | Discharge Summary ---
Providers - Providers Date of Admission: 04/28/21 14:55 Date of discharge: 04/29/21 Attending physician: MD Dr. Kev RENTERIA Primary care physician: [employer] Hospitalization Reason for admission: Abdominal pain Condition: Good Procedures: Status post laparoscopic appendectomy Hospital course: 35 YO Male with Obesity presents to ED for evaluation. Pt reports "my stomach hurts". Patient states that he has experienced abdominal pain over the past 5 days with worsening symptoms over the same timeframe. Patient states that pain is 7/10, constant, crampy in nature, localized to the right lower quadrant without exacerbating or alleviating factors. Patient acknowledges nausea. Patient transported to [facility] via private vehicle for further care and evaluation of the aforementioned symptoms. Patient seen and evaluated in the emergency department. All lab and imaging studies reviewed. Patient with CT scan of the abdomen pelvis was found to have acute appendicitis complicated by systemic inflammatory response syndrome. Surgery team consulted in ED. patient is seen and evaluated by surgery. Patient is status post lap appendectomy. Postop patient is doing good. Surgery cleared the patient for discharge with outpatient follow-up with surgery within a week. Condition at the time of discharge is stable (1) Acute appendicitis Current Visit: Yes Status: Acute Qualifiers: Appendicitis perforation presence: without perforation Plan to address problem: N.p.o., IV fluid resuscitation therapy, IV antibiotic therapy, patient is seen and evaluated by surgery. Patient is status post lap appendectomy. Postop patient is doing good. Surgery cleared the patient for discharge with outpatient follow-up with surgery within a week. Condition at the time of discharge is stable (2) SIRS (systemic inflammatory response syndrome) Current Visit: Yes Status: Acute Plan to address problem: patient is seen and evaluated by surgery. Patient is status post lap appendectomy. Postop patient is doing good. Surgery cleared the patient for discharge with outpatient follow-up with surgery within a week. Condition at the time of discharge is stable (3) Obesity (BMI 30.0-34.9) Current Visit: Yes Status: Acute Plan to address problem: Balanced diet, increase physical activity at discharge, (4) DVT prophylaxis Current Visit: Yes Status: Acute Plan to address problem: SCD to bilateral lower extremities while in bed, patient is ambulatory Disposition: TO HOME OR SELFCARE Final Discharge Diagnosis (Prints w/discharge instructions): Acute appendicitis status post lap appendectomy Time spent for discharge: 35 - Discharge Diagnoses (1) Acute appendicitis Status: Acute Qualifiers: Appendicitis perforation presence: without perforation (2) Obesity (BMI 30.0-34.9) Status: Acute (3) SIRS (systemic inflammatory response syndrome) Status: Acute Core Measure Documentation - Palliative Care Palliative Care/ Comfort Measures: Not Applicable - Core Measures Any of the following diagnoses?: none - VTE Discharge Requirements Deep Vein Thrombosis/Pulmonary Embolism Present on Admission: No Exam - Constitutional Vitals: Temp Pulse Resp BP Pulse Ox 98.0 F 85 18 121/66 96 04/29/21 10:34 04/29/21 10:34 04/29/21 10:34 04/29/21 10:34 04/29/21 10:34 General appearance: Present: no acute distress, well-nourished - EENT Eyes: Present: PERRL ENT: hearing intact, clear oral mucosa - Neck Neck: Present: supple, normal ROM - Respiratory Respiratory effort: normal Respiratory: bilateral: CTA - Cardiovascular Heart Sounds: Present: S1 & S2. Absent: rub, click - Extremities Extremities: pulses symmetrical, No edema Peripheral Pulses: within normal limits - Abdominal General gastrointestinal: Present: soft, non-tender, non-distended, normal bowel sounds Male genitourinary: Present: normal - Integumentary Integumentary: Present: clear, warm, dry - Musculoskeletal Musculoskeletal: gait normal, strength equal bilaterally - Psychiatric Psychiatric: appropriate mood/affect, intact judgment & insight - Neurologic Neurologic: CNII-XII intact, moves all extremities Plan Activity: no restrictions Diet: advance as tolerated Wound: keep clean and dry, per your surgeon's advice Special Instructions: no heavy lifting Follow up with: PRIMARY CARE,MD [Primary Care Provider] - 3-5 Days Prescriptions: HYDROcodone/APAP 5-325 [Recluse 5-325 mg TAB] 1 each PO Q4H PRN #20 tablet PRN Reason: Pain , Severe (7-10)
== END 2021-04-29 15:10 | disposition home or self-care (01) ==
LOC: ED 09:09 → 3A 14:55 → 3B-SURG 17:13
PROVIDERS: ADMIT Internal Medicine; ATTEND Hospitalist
DX: K35.80 Unspecified acute appendicitis (principal); R65.10 Systemic inflammatory response syndrome (SIRS) of non-infectious origin without acute organ dysfunction; E66.9 Obesity, unspecified; Z68.31 Body mass index [BMI] 31.0-31.9, adult
CPT/HCPCS: 36415; 44970; 74177; 80048; 80053; 80076; 81001; 83690; 83735; 85025; 88304; 96361; 96365; 96366; 96375; 96376; 99285; G0378; J0330; J1170; J1885; J2250; J2270; J2405; J2543; J2704; J2710; J7030; J7120; Q9967